=== PATIENT | male | born 2000 | race Caucasian/White ===

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

== ENCOUNTER 2023-05-16 08:55 | Emergency (ER) | payer MEDICAID, OTHER ==
[~2023-05-16] VITALS: Ht 180.3 cm; Wt 90.9 kg
[2023-05-16 08:57] VITALS: TEMP 98.2
[2023-05-16] MEDS: IBUPROFEN 600 MG TABLET PO ONE (10:42)
[2023-05-16] MEDS ORDERED: IBUP-1554 PO (11:10)
[2023-05-16 11:15] VITALS: BP 125/81; PULSE 70; RESP 12
== END 2023-05-16 11:39 | disposition home or self-care (01) ==
LOC: EMS 09:22
DX: S93.401A Sprain of unspecified ligament of right ankle, initial encounter (principal); S90.31XA Contusion of right foot, initial encounter; W50.0XXA Accidental hit or strike by another person, initial encounter; Y93.89 Activity, other specified; Y92.89 Other specified places as the place of occurrence of the external cause; Y99.8 Other external cause status
CPT/HCPCS: 99284; 73610-TC; 73630-TC; Z7502; Z7610